=== PATIENT | female | born 1960 | race Caucasian/White ===

== ENCOUNTER 2016-03-09 13:46 | Emergency (ER) | payer BC ==
[~2016-03-09] VITALS: Ht 154.9 cm; Wt 49.9 kg
[2016-03-09] MEDS ORDERED: LIORESAL 10 MG10 MG PO (14:38)
[2016-03-09 15:23] VITALS: BP 116/74
== END 2016-03-09 15:24 | disposition home or self-care (01) ==
LOC: ER 13:46
DX: S33.5XXA Sprain of ligaments of lumbar spine, initial encounter (principal); W00.9XXA Unspecified fall due to ice and snow, initial encounter; Y93.23 Activity, snow (alpine) (downhill) skiing, snowboarding, sledding, tobogganing and snow tubing; Y92.89 Other specified places as the place of occurrence of the external cause; Y99.8 Other external cause status

== ENCOUNTER → 2017-12-15 | Outpatient (CLI) | payer BC ==
[~2017-12-15] MED LIST: LIORESAL 10 MG10 MG PO
== END ==
LOC: RAD 13:28
DX: Z12.31 Encounter for screening mammogram for malignant neoplasm of breast (principal)

== ENCOUNTER → 2017-12-23 | Outpatient (CLI) | payer BC | LOC: NUC 13:17 | DX: Z13.820 Encounter for screening for osteoporosis (principal); N91.2 Amenorrhea, unspecified; Z78.0 Asymptomatic menopausal state ==

== ENCOUNTER → 2020-10-23 | Outpatient (CLI) | payer BC | LOC: BC 13:38 | PROVIDERS: ATTEND Family Medicine | DX: Z12.31 Encounter for screening mammogram for malignant neoplasm of breast (principal) ==